=== PATIENT | female | born 1965 | race Two or more races ===

== ENCOUNTER 2017-07-26 15:14 | Emergency (ER) | payer OTHER ==
[~2017-07-26] VITALS: Ht 157.5 cm; Wt 50.8 kg
[~2017-07-26 15:14] MED LIST: ACIPHEX; CLONAZEPAM0.5 MG; KENALOG-1010 MG/ML; PROTONIX40 MG PO; VISTARIL50 MG; [UNRECOGNIZED DRUG - CODE]
== END 2017-07-26 21:50 | disposition home or self-care (01) ==
LOC: ER 15:14
DX: K29.70 Gastritis, unspecified, without bleeding (principal); E03.8 Other specified hypothyroidism

== ENCOUNTER → 2020-05-29 | Emergency (ER) | payer OTHER ==
[~2020-05-29] MED LIST changes: +PREVACID30 MG
== END | disposition left against medical advice (07) ==
LOC: ER 23:43
DX: Z53.20 Procedure and treatment not carried out because of patient's decision for unspecified reasons (principal)

== ENCOUNTER → 2021-04-16 | Outpatient (CLI) | payer OTHER | END | disposition home or self-care (01) | LOC: PPH VACUNA 08:00 | PROVIDERS: ATTEND Emergency Medicine Pediatric Emergency Medicine | DX: Z23 Encounter for immunization (principal) ==

== ENCOUNTER → 2021-05-30 10:19 | Outpatient (CLI) | payer OTHER | END | disposition home or self-care (01) | LOC: NUCLEAR 10:00 | PROVIDERS: ATTEND Internal Medicine Cardiovascular Disease | DX: I66.9 Occlusion and stenosis of unspecified cerebral artery (principal) ==